=== PATIENT | male | born 1970 | race Caucasian/White ===

== ENCOUNTER 2024-07-29 03:04 | Emergency (ER) | payer OTHER, SELFPAY ==
[2024-07-29 03:04] VITALS: BMI 28.5
[2024-07-29 03:05] VITALS: BP 161/101
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
[2024-07-29 04:33] VITALS: BP 133/95
== END 2024-07-29 04:50 | disposition home or self-care (01) ==
LOC: EMR 03:04
PROVIDERS: EMERGENCY PHYSICIAN Student in an Organized Health Care Education/Training Program; FAMILY PHYSICIAN Family Medicine
DX: M54.2 Cervicalgia (principal); R07.89 Other chest pain; M54.9 Dorsalgia, unspecified; V89.2XXA Person injured in unspecified motor-vehicle accident, traffic, initial encounter
CPT/HCPCS: 99284; 71046; 72050; 93005